=== PATIENT | female | born 1975 | race Caucasian/White ===

== ENCOUNTER 2019-05-22 11:52 | Emergency (ER) | payer BC ==
[2019-05-22] MEDS ORDERED: Prochlorperazine 10 MG/2 ML VIAL ONE (12:06)
[2019-05-22] MEDS ORDERED: diphenhydrAMINE 25 MG CAP ONE (12:06)
[2019-05-22] MEDS ORDERED: Ketorolac Tromethamine 30 MG/ML VIAL ONE (12:06)
== END 2019-05-22 13:20 | disposition home or self-care (01) ==
LOC: BURERS 11:52
DX: G43.909 Migraine, unspecified, not intractable, without status migrainosus (principal); F41.9 Anxiety disorder, unspecified; F32.9 Major depressive disorder, single episode, unspecified; Z79.899 Other long term (current) drug therapy
CPT/HCPCS: 96361; 96374; 96375; J0780; J1885; Q0163